=== PATIENT | female | born 1980 | race Caucasian/White ===

== ENCOUNTER → 2021-05-22 | Outpatient (CLI) | payer OTHER ==
--- NOTE | 2021-05-23 09:38 | SLEEP ---
DATE OF STUDY: 05/22/2021 OBJECTIVE: The patient is a 40-year-old female with excessive somnolence, snoring. Height 5 feet 5 inches, weight 225 pounds, body mass index 38. [place] sleep score 11. INTERPRETATION: Sleep architecture is characterized by sleep efficiency of 98% across the 8 hours of recording time. Stage volumes are normal for age. REM sleep volume is actually increased somewhat. There is a slightly decreased amount of slow-wave sleep, still all within normal limits. The sleep onset latency is 2 minutes. Respiratory monitoring shows a total of 43 events for an apnea-hypopnea index of 5.5 events per hour sleep. The minimum oxygen saturation is 85%. A split night protocol is not initiated because of a low amount of apnea. There were no significant periodic limb movements of sleep or arrhythmias. IMPRESSION: Abnormal polysomnogram showing very mild obstructive sleep apnea and hypopnea. RECOMMENDATIONS: The findings on this study are not severe enough to explain the patient's excessive somnolence. The patient has a very short sleep latency. She should be evaluated for alternative sleep disorders including shift-work disorder and even narcolepsy. One could consider a CPAP titration study or empiric use of variable CPAP. Referral to a sleep specialist may be the best course. Thank you for letting us help with the patient's care. NITHYA/CINDY/TR DR: Sumi TID: [id number] CC: ANA ROBLERO MD
== END ==
LOC: SLPLAB 19:14
PROVIDERS: ATTEND Family Medicine
DX: G47.33 Obstructive sleep apnea (adult) (pediatric) (principal)
CPT/HCPCS: 95810